=== PATIENT | female | born 1990 | race African-American/Black ===

== ENCOUNTER 2017-08-16 21:39 | Emergency (ER) | payer OTHER ==
[~2017-08-16] VITALS: Ht 165.1 cm; Wt 69.4 kg
[2017-08-16] MEDS ORDERED: predniSONE 10 MG TABLET ONE (22:14)
[2017-08-16] MEDS ORDERED: predniSONE 50 MG TABLET ONE (22:14)
[2017-08-16] MEDS ORDERED: BENZONATATE 100 MG CAPSULE ONE (22:14)
[2017-08-16] MEDS ORDERED: GUAIFENESIN/CODEINE 5 ML LIQUID UDC ONE (22:14)
[2017-08-16] MEDS ORDERED: BENZONATATE 100 MG CAPSULE PO ONE (22:15)
[2017-08-16] MEDS ORDERED: ALBUTEROL SULFATE 2.5 MG/3 ML NEBU NEB ONE (22:15)
[2017-08-16] MEDS ORDERED: GUAIFENESIN/CODEINE 5 ML LIQUID UDC PO ONE (22:15)
[2017-08-16] MEDS ORDERED: predniSONE 20 MG TABLET PO ONE (22:15)
[2017-08-16] MEDS ORDERED: ALBUTEROL SULFATE 2.5 MG/3 ML NEBU ONE (22:19)
--- NOTE | 2017-08-16 23:31 | NUR ---
Patient discharged to home in stable conditon. Written and verbal after care instructions given. Patient verbalizes understanding of instructions.
== END 2017-08-16 23:32 | disposition home or self-care (01) ==
LOC: ER 21:40
DX: J45.909 Unspecified asthma, uncomplicated (principal)
CPT/HCPCS: 94640; 99284; A4663; J7512 ×2